=== PATIENT | male | born 1950 | race Caucasian/White ===

== ENCOUNTER 2022-05-17 16:40 | Emergency (ER) | payer OTHER, SELFPAY ==
[2022-05-17 16:50] VITALS: BP 172/87; PULSE 72; RESP 17; TEMP 36.4; O2SAT 97
--- NOTE | 2022-05-17 17:15 | DI.CT_ITS ---
Exam(s) CT ABDOMEN PELVIS W EXAM: CT ABDOMEN PELVIS W CLINICAL HISTORY: Lower abd pain TECHNIQUE: COMPARISON: No exams were available for comparison FINDINGS: CT examination of the abdomen and pelvis was performed with bolus infusion of 100 cc of Omnipaque 350 . Images obtained through the lung bases are unremarkable. The liver shows mildly decreased attenuation consistent with hepatic steatosis with no evidence of a focal mass. Spleen is unremarkable in appearance.. Gallbladder and bile ducts are unremarkable. Pancreas is unremarkable in appearance. Adrenals appear normal bilaterally. Kidneys appear normal with no evidence of renal mass, hydronephrosis, or nephrolithiasis. Unremarkab le bladder. There is no evidence of abdominal or pelvic adenopathy. Abdominal aorta is of normal diameter and no abnormality is seen involving major visceral branches.. Appendix is normal. No evidence diverticulitis or bowel obstruction. There is a right inguinal hernia containing loops of normal appearing small bowel . Impression: No evidence of acute intra-abdominal process. RADIATION DOSE DELIVERED: 1,295.09mGy.cm Total DLP 1,295.09mGy.cm Total DLP !Error CTDIvol DATA REPOSITORY: All CT scans at this facility are submitted to the National Radiology Data Registry (NRDR) Dose Index Registry (DIR) with the [employer] (A[employer]). RADIATION OPTIMIZATION: All CT scans at this facility use at least one of these dose optimization te chniques: automated exposure control; mA and/or kV adjustment per patient size (includes targeted exa ms where dose is matched to clinical indication); or iterative reconstruction.
--- NOTE | 2022-05-17 17:20 | ED.GENADUL_ITS ---
Discharge Plan Disposition Patient Disposition: HOME Condition: Improving Discharge Details Clinical Impression: Urinary urgency Primary Care Provider: None,None ED Provider: Abimael Lauren Home Meds and New Rx's Prescriptions: New amlodipine 5 mg tablet 5 mg PO DAILY 14 Days Qty: 14 0RF Discharge Instructions Additional Instructions: Your work-up today included laboratories, urinalysis, and CAT scan of your abdomen and pelvis. We have given you a copy of your images on CD for your records and for your home physician. Continue your routine medications and the amlodipine as we discussed. Please follow-up with your regular doctor for recheck upon your return to home. Return if you develop a fever, back pain, vomiting, or any other acute concerns. As we discussed, we will trial Pyridium for your bladder discomfort. 1 tablet now and again tomorrow if needed. This medicine is available [id number] WBC 7.92 RBC 5.02 Hgb 15.1 Hct 44.2 MCV 88 MCH 30.1 MCHC 34.2 RDW 13.3 Plt Count 180 Sodium 139 Potassium 3.7 Chloride 103 Carbon Dioxide 28.1 Anion Gap 7.9 BUN 15 Creatinine 1.0 Est GFR (CKD-EPI 2020) 79.47 Glucose 134 H Calcium 9.1 Total Bilirubin 0.6 AST 24 ALT 40 Alkaline Phosphatase 81 Total Protein 8.0 Albumin 3.8 Urine Color Yellow Urine Clarity Clear Urine pH 7.0 Ur Specific [place] 1.020 Urine Protein Negative Urine Ketones Negative Urine Blood Negative Urine Nitrite Negative Urine Bilirubin Negative Urine Urobilinogen 0.2 Ur Leukocyte Esterase Negative Urine Glucose Negative Medical Decision Making 71-year-old male presents with his . They are visiting from [facility] and staying locally for 2 days. Patient noted primarily today urgency and frequency of urination that was unusual for him. No recent changes to medications. He has otherwise been well. He does have a history of hypertension and difficulty with sleep. He takes Ambien, lorazepam, amlodipine, valsartan, bisoprolol. On exam he is well-appearing and in no acute distress. Urinalysis obtained and reassuring. Must consider diverticulitis, renal colic, mass or other infectious process. Patient IV access established, screening labs obtained he is referred for CT imaging. Laboratories reveal reassuring CBC and chemistries. Urinalysis unremarkable. CT shows no acute findings. Note of a large right inguinal hernia. Urinary bladder is unremarkable. No clear evidence of obvious causative etiology for the patient's lower abdominal discomfort this morning. He is improving. We will trial 2 tablets of Pyridium for symptom control Patient also states that he does not have his amlodipine. He is given his nig htly dose I will write him a short prescription to bridge him until he returns to home. He is given copy of his images and laboratories Lab Data Lab results reviewed: Yes I reviewed the patient's lab results. Labs: Laboratory Results - last 24 hr 05/17/22 05/17/22 05/17/22 17:01 17:39 17:39 WBC 7.92 RBC 5.02 Hgb 15.1 Hct 44.2 MCV 88 MCH 30.1 MCHC 34.2 RDW 13.3 Plt Count 180 MPV 11.3 H Immature Gran % 0.6 Neutrophils % 66.2 Lymphocytes % 23.0 Monocytes % 7.4 Eosinophils % 2.0 Basophils % 0.8 Nucleated RBC % 0.0 Absolute Neutrophils 5.24 Absolute Lymphocytes 1.82 Absolute Monocytes 0.59 Absolute Eosinophils 0.16 Absolute Basophils 0.06 Sodium 139 Potassium 3.7 Chloride 103 Carbon Dioxide 28.1 Anion Gap 7.9 BUN 15 Creatinine 1.0 Est GFR (CKD-EPI 2020) 79.47 Glucose 134 H Calcium 9.1 Total Bilirubin 0.6 AST 24 ALT 40 Alkaline Phosphatase 81 Total Protein 8.0 Albumin 3.8 Urine Color Yellow Urine Clarity Clear Urine pH 7.0 Ur Specific [place] 1.020 Urine Protein Negative Urine Ketones Negative Urine Blood Negative Urine Nitrite Negative Urine Bilirubin Negative Urine Urobilinogen 0.2 Ur Leukocyte Esterase Negative Urine Glucose Negative HPI General Mode of arrival: ambulatory . Date/Time Provider Initiated Documentation: 05/17/22 16:58 . Limitations to Documentation: no limitations . Information obtained by: patient . History of Present Illness 71 year old M presents to the emergency department with the chief complaint of Increased frequency and urgency of urine, described as moderate, Quality is described as dull, and is localized to the abdomen and pelvis. Patient reports no radiation. Patient started experiencing this hour(s) and it has been intermittent. No relieving factors improve symptom(s), No exacerbating factors reported . Patient notes denies fever/chills, loss of appetite and nausea/vomiting. Patient did receive the following treatments prior to arrival, none Related Data Home Medications Medication Instructions Recorded Confirmed amlodipine 5 mg tablet 5 mg PO DAILY 2 weeks #14 tabs 05/17/22 Previous Rx's Medication Instructions Recorded amlodipine 5 mg tablet 5 mg PO DAILY 2 weeks #14 tabs 05/17/22 Allergies Allergy/AdvReac Type Severity Reaction Status Date / Time No Known Allergies Allergy Unverified 05/17/22 16:54 General Stated Complaint: Urinary FIDEL: 3 Review of Systems Narrative: 6 systems reviewed and otherwise negative PFSH All Active Problems (Updated 05/17/22 @ 19:38 by Abimael Lauren MD) Urinary urgency (Acute) Social History Smoking/Tobacco Use Status: Never Smoking risk assessment performed?: Yes Alcohol Intake: never Drug use: Never Substance use type: does not use Exam Narrative Exam Narrative: GEN: awake, alert, oriented 3. Pleasant, well groomed, interactive. HEAD: Normocephalic, atraumatic ENT: Mucous membranes moist,External ear exam unremarkable EYES: PERRL, EOMI NECK: Full ROM, no CHRISTOPH, no menigismus CHEST/RESP: Nontender, clear to auscultation bilateral, no wheeze/rhonchi/rales CARDIOVASCULAR: RRR, no murmur, rub michael. 2+ Rad pulse bilateral ABDOMEN: Soft, nontender, no mass. +Bowel sounds EXT: Full ROM, no edema, no rash Neuro: Grossly normal neurologic exam, conversant, interactive. Psych: Speech fluent, thoughts congruent, affect normal Course Vital Signs Vital signs: Vital Signs Temperature 36.4 C L 05/17/22 16:50 Pulse 72 05/17/22 16:50 Respiratory Rate 17 05/17/22 16:50 Blood Pressure 172/87 H 05/17/22 16:50 Pulse Oximetry 97 05/17/22 16:50 Temperature 36.4 C L 05/17/22 16:50 Pulse 72 05/17/22 16:50 Respiratory Rate 17 05/17/22 16:50 Respiratory Effort Non-Labored 05/17/22 17:01 Blood Pressure 172/87 H 05/17/22 16:50 Blood Pressure Position Sitting 05/17/22 16:50 Pulse Oximetry 97 05/17/22 16:50 Oxygen Delivery Method Room Air 05/17/22 16:50 Oxygen Flow Rate 0 05/17/22 16:50 Pain Level 0 05/17/22 17:01
[2022-05-17 17:23] LABS: Bilirubin Negative (Negative); Blood Negative (Negative); Clarity Clear (Clear); Glucose Negative (Negative); Ketones Negative (Negative); Leukocyte Esterase Negative (Negative); Nitrite Negative (Negative); Urobilinogen 0.2 EU/dL (Up TO 0.2)
[2022-05-17 17:44] LABS: Abs Immature Grans 0.05 10^3/uL (0.0-0.06); Absolute Basophil Count 0.06 10^3/uL (0.0-0.2); Absolute Eosinophil Count 0.16 10^3/uL (0.0-0.7); Absolute Lymphocyte Count 1.82 10^3/uL (1.2-3.4); Absolute Monocyte Count 0.59 10^3/uL (0.1-0.8); Absolute Neutrophil Count 5.24 10^3/uL (1.2-6.7); Basophils % 0.8; HCT 44.2 % (40.0-50.0); HGB 15.1 g/dL (13.5-17.5); Immature Grans % 0.6; MCH 30.1 pg (27.0-33.0); MCHC 34.2 % (32.0-36.0); MCV 88 fL (80-95); MPV 11.3 fL (8.0-11.0); Monocytes % 7.4; Neutrophils % 66.2; Platelet Count 180 10^3/uL (130-400); RBC 5.02 10^6/uL (4.36-5.78); RDW 13.3 % (11.8-14.1); WBC 7.92 10^3/uL (4.4-10.8)
[2022-05-17 18:00] LABS: ALT 40 U/L (16-63); AST 24 U/L (15-37); Albumin 3.8 g/dL (3.4-5.0); Alkaline Phosphatase 81 U/L (46-116); Anion Gap 7.9 mmol/L (3-11); BUN 15 mg/dL (7-18); Bilirubin, Total 0.6 mg/dL (0.2-1.0); CO2 28.1 mmol/L (21.0-32.0); Calcium 9.1 mg/dL (8.5-10.1); Chloride 103 mmol/L (98-107); Estimated GFR 79.47 (mL/min/1.73m2); Glucose 134 mg/dL (74-106); Potassium 3.7 mmol/L (3.5-5.1); Sodium 139 mmol/L (136-145)
[2022-05-17] MEDS: Omnipaque 350 MG/ML 100 ML BTL IJ (19:09)
[2022-05-17] MEDS: Normal Saline Flush 10 ML SYR IVP (19:10)
--- NOTE | 2022-05-17 19:28 | DI.VRAD_ITS ---
PROCEDURE INFORMATION: Exam: CT Abdomen And Pelvis With Contrast Exam date and time: 05/17/2022 19:00 Age: 71 years old Clinical indication: Other: Lower abd pain TECHNIQUE: Imaging protocol: Computed tomography of the abdomen and pelvis with contrast. COMPARISON: No relevant prior studies available. FINDINGS: Lungs: Minimal dependent subsegmental atelectasis. Heart: Cardiomegaly is partially seen. Liver: Fatty liver with no mass lesions. Gallbladder and bile ducts: No calcified stones. No ductal dilation. Pancreas: No ductal dilation. No masses. Spleen: The spleen is upper limits of normal in size. Adrenal glands: No mass. Kidneys and ureters: Benign-appearing renal cysts and probable cysts. No renal masses or hydronephrosis bilaterally. Stomach and bowel: Benign appearing duodenal diverticulum. No focal pathology in the small bowel. No colitis or diverticular disease. Appendix: No evidence of appendicitis. Intraperitoneal space: No free air. No significant fluid collection. Vasculature: No abdominal aortic aneurysm. Lymph nodes: No significantly enlarged lymph nodes. Urinary bladder: Unremarkable as visualized. Reproductive: Unremarkable as visualized. Bones/joints: No acute fracture or subluxation. Soft tissues: Large right inguinal hernia containing fat and decompressed small bowel. Small fat-containing left inguinal hernia. IMPRESSION: 1. No acute findings. 2. Incidental findings as described. Dictated and Authenticated by: Jennifer Carreon MD. Ordering:SANDY Varghese MD
[2022-05-17 20:00] VITALS: BP 178/90; PULSE 72; RESP 16; TEMP 36.4; O2SAT 95
[2022-05-17] MEDS: amLODIPine 5 MG TAB PO (20:04)
[2022-05-17] MEDS: Phenazopyridine 100 MG TAB, 2 TABS/BTL PO (20:04)
== END 2022-05-17 20:08 | disposition home or self-care (01) ==
LOC: ER 20:22
PROVIDERS: Emergency Provider Emergency Medicine
DX: R39.15 Urgency of urination (principal); R35.0 Frequency of micturition; K40.90 Unilateral inguinal hernia, without obstruction or gangrene, not specified as recurrent
CPT/HCPCS: 36415; 80053; 99285; 74177; 81003; 85025; 99284; J3490